=== PATIENT | male | born 1955 | race Caucasian/White ===

== ENCOUNTER 2022-05-25 21:39 | Emergency (ER) | payer OTHER ==
[~2022-05-25 21:39] MED LIST: Iopamidol-370 76% 500 ML 1 ML ONE
[2022-05-25 23:12] LABS: #Basophils 0.1 thou/uL (0.0-0.2); #Eosinphils 0.2 thou/uL (0.0-0.7); #Lymphocytes 1.9 thou/uL (1.20-3.40); #Monocytes 0.8 thou/uL (0.11-0.59); #Neutrophils 9.1 thou/uL (1.40-6.50); %Basophils 0.4 % (0.0-1.0); %Eosinophils 1.8 % (0.0-10.0); %Lymphocytes 15.8 % (21.0-51.0); %Monocytes 6.6 % (0.0-10.0); %Neutrophils 75.3 % (42.0-75.0); Hemoglobin 11.3 g/dL (14.0-18.0); Mean Corpuscular HGB CONC 34.4 g/dL (32.0-36.0); Mean Corpuscular Hemoglobin 32.7 pg (27.0-31.0); Mean Corpuscular Volume 95.3 fL (78.0-98.0); Mean Platelet Volume 7.3 fL (7.4-10.4); Platelet Count 406 thou/uL (130-400); RBC Distribution Width 14.1 % (11.5-14.5); Red Blood Cell (RBC) Count 3.45 mill/uL (4.70-6.10); White Blood Cell (WBC) Count 12.1 thou/uL (4.8-10.8)
[2022-05-25 23:34] LABS: Anion Gap 20 mmol/L (10-20); BUN (Urea Nitrogen) 26 mg/dL (8.4-25.7); Calc. Creatinine Clearance 0 mL/min (70-130); Carbon Dioxide 22 mmol/L (23-31); Chloride 101 mmol/L (98-107); Potassium 3.7 mmol/L (3.5-5.1); Sodium 139 mmol/L (136-145)
[2022-05-25 23:35] LABS: ALT (SGPT) 25 U/L (8-55); AST (SGOT) 21 U/L (5-34); Albumin 4.1 g/dL (3.4-4.8); Alkaline Phosphatase 103 U/L (40-110); Bilirubin, Total 0.6 mg/dL (0.2-1.2); CK (CPK) 76 U/L (30-200); Estimated GFR 63; Glucose 103 mg/dL (80-115); Lipase 25 U/L (8-78); Magnesium 1.6 mg/dL (1.6-2.6); Protein, Total 7.1 g/dL (5.8-8.1)
== END 2022-05-26 00:35 ==
LOC: ERS 21:39
DX: M79.18 Myalgia, other site (principal)
CPT/HCPCS: 36415; 70450; 74177; 80053; 82550; 83605; 83690; 83735; 84484; 85025; 93005; Q9967

== ENCOUNTER 2023-04-08 01:06 | Inpatient (IN) | payer MEDICARE, OTHER ==
[2023-04-08 01:38] LABS: Actual Bicarbonate (HCO3v) 28.8 mEq/L (22-28); Base Excess 0.7 mEq/L (-2.0 to +3.0); Calcium, Ionized (venous) 1.21 mmol/L (1.16-1.32); Chloride (VBG) 104 mmol/L (98-106); Hematocrit-VBG 39 % (42.0-52.0); Hemoglobin (Hb) 13.2 g/dL (12.6-17.4); Sodium 144.2 mmol/L (133-146); pH (venous) 7.282 (7.32-7.43)
[2023-04-08 01:41] LABS: #Basophils 0.1 thou/uL (0.0-0.2); #Eosinphils 0.6 thou/uL (0.0-0.7); #Monocytes 0.6 thou/uL (0.11-0.59); #Neutrophils 4.6 thou/uL (1.40-6.50); %Basophils 0.6 % (0.0-1.0); %Eosinophils 7.5 % (0.0-10.0); %Lymphocytes 24.4 % (21.0-51.0); %Monocytes 7.4 % (0.0-10.0); %Neutrophils 59.8 % (42.0-75.0); Hemoglobin 11.8 g/dL (14.0-18.0); Mean Corpuscular HGB CONC 31.8 g/dL (32.0-36.0); Mean Corpuscular Hemoglobin 30.3 pg (27.0-31.0); Mean Corpuscular Volume 95.1 fl (78.0-98.0); Mean Platelet Volume 10.2 fL (7.4-10.4); Platelet Count 258 10x3/uL (130-400); RBC Distribution Width 15.9 % (11.5-14.5); White Blood Cell (WBC) Count 7.7 10x3/uL (4.8-10.8)
[2023-04-08] MEDS ORDERED: methylPREDNISolone Sod Succ/PF 125 MG/2 ML VIAL ONE (01:41)
[2023-04-08] MEDS ORDERED: Azithromycin 500 MG VIAL ONE (01:42)
[2023-04-08] MEDS ORDERED: cefTRIAXone (ROCEPHIN) 1 GM VIAL ONE (01:42)
[2023-04-08] MEDS ORDERED: Albuterol 2.5 MG/0.5 ML NEB ONE (01:47)
[2023-04-08 02:04] LABS: ALT (SGPT) 70 U/L (8-55); AST (SGOT) 86 U/L (5-34); Alkaline Phosphatase 142 U/L (40-110); Anion Gap 13 mmol/L (10-20); BUN (Urea Nitrogen) 15 mg/dL (8.4-25.7); Bilirubin, Total 0.4 mg/dL (0.2-1.2); Calc. Creatinine Clearance 0 mL/min (70-130); Calcium 10.2 mg/dL (7.8-10.44); Carbon Dioxide 30 mmol/L (23-31); Chloride 105 mmol/L (98-107); Estimated GFR 54; Globulin 2.9 g/dL (2.4-3.5); Glucose 135 mg/dL (80-115); Potassium 4.2 mmol/L (3.5-5.1); Protein, Total 6.9 g/dL (5.8-8.1); Sodium 144 mmol/L (136-145)
[2023-04-08 02:26] LABS: CKMB 1.3 ng/mL (0-6.6)
[2023-04-08] MEDS ORDERED: Furosemide 40 MG/4 ML VIAL ONE (02:43)
[2023-04-08] MEDS ORDERED: Aspirin Chewable 81 MG TAB ONE (02:43)
[2023-04-08] MEDS ORDERED: Senokot S 8.6-50 MG TAB PO PRN (04:17)
[2023-04-08] MEDS ORDERED: Acetaminophen 325 MG TAB PO PRN (04:17)
[2023-04-08] MEDS ORDERED: Ondansetron ODT 4 MG TAB PO PRN (04:17)
[2023-04-08] MEDS: Furosemide 40 MG/4 ML VIAL SLOW IVP SCH ×2 (05:37→14:35)
[2023-04-08 06:37] VITALS: BMI 46.9
[2023-04-08] MEDS ORDERED: hydrALAZINE 25 MG TAB PO SCH (07:00)
[2023-04-08] MEDS: Ipratropium/Albuterol 3 ML NEB NEB SCH ×3 (08:03→18:28)
[2023-04-08] MEDS: Lisinopril 5 MG TAB PO SCH (08:26)
[2023-04-08] MEDS: Famotidine 20 MG TAB PO SCH ×2 (08:26→20:59)
[2023-04-08] MEDS: Carvedilol 6.25 MG TAB PO SCH ×2 (08:27→17:03)
[2023-04-08] MEDS: Doxycycline 100 MG CAP PO SCH ×3 (08:28→21:00)
[2023-04-08 08:34] LABS: Troponin I 0.046 ng/mL (< 0.028)
[2023-04-08] MEDS: methylPREDNISolone Sod Succ 40 MG VIAL IVP SCH ×2 (09:28→21:01)
[2023-04-08] MEDS: hydrALAZINE 25 MG TAB PO SCH ×2 (14:35→21:00)
[2023-04-08] MEDS ORDERED: Benzonatate 100 MG CAP PO PRN (15:18)
[2023-04-08] MEDS: Sucralfate 1 GM/10 ML UDCUP PO SCH ×2 (17:02→21:00)
[2023-04-08] MEDS: Docusate 100 MG CAP PO SCH ×2 (17:02→21:01)
[2023-04-08] MEDS: traMADol HCl 50 MG TAB PO SCH (17:02)
[2023-04-08] MEDS: Cilostazol 100 MG TAB PO SCH (17:03)
[2023-04-08] MEDS ORDERED: Albuterol 200 PUFF (6.7GM INHALER) INH PRN (18:00)
[2023-04-08] MEDS: Pregabalin 75 MG CAP PO SCH (20:59)
[2023-04-08] MEDS: Aspirin Chewable 81 MG TAB PO SCH (20:59)
[2023-04-08] MEDS ORDERED: Non-Formulary Item 1 EACH (Carvedilol [Coreg] 12.5 MG Tablet) PO SCH (21:00)
[2023-04-08] MEDS: Ferrous Sulfate 325 MG TAB PO SCH (21:00)
[2023-04-08] MEDS ORDERED: Venlafaxine 75 MG TAB PO PRN (21:00)
[2023-04-08] MEDS ORDERED: tiZANidine HCl 4 MG TAB PO PRN (22:00)
[2023-04-09] MEDS: traMADol HCl 50 MG TAB PO SCH ×4 (00:18→17:15)
[2023-04-09] MEDS: Ipratropium/Albuterol 3 ML NEB NEB SCH ×4 (00:24→18:24)
[2023-04-09] MEDS: cefTRIAXone\\ROCEPHIN 1 GM in Sodium Chloride 0.9% 100 ML IVPB SCH (02:33)
[2023-04-09 04:49] LABS: #Monocytes 0.4 thou/uL (0.11-0.59); #Neutrophils 10.1 thou/uL (1.40-6.50); %Basophils 0.2 % (0.0-1.0); %Lymphocytes 11.2 % (21.0-51.0); %Neutrophils 85.3 % (42.0-75.0); Hemoglobin 12.1 g/dL (14.0-18.0); Mean Corpuscular HGB CONC 31.8 g/dL (32.0-36.0); Mean Corpuscular Hemoglobin 30.2 pg (27.0-31.0); Mean Platelet Volume 10.6 fL (7.4-10.4); Platelet Count 289 10x3/uL (130-400); RBC Distribution Width 15.9 % (11.5-14.5); Red Blood Cell (RBC) Count 4.01 mill/uL (4.70-6.10); White Blood Cell (WBC) Count 11.9 10x3/uL (4.8-10.8)
[2023-04-09 05:16] LABS: Anion Gap 15 mmol/L (10-20); BUN (Urea Nitrogen) 22 mg/dL (8.4-25.7); Calc. Creatinine Clearance 99 mL/min (70-130); Calcium 9.9 mg/dL (7.8-10.44); Carbon Dioxide 30 mmol/L (23-31); Chloride 100 mmol/L (98-107); Estimated GFR 56; Glucose 144 mg/dL (80-115); Sodium 141 mmol/L (136-145)
[2023-04-09] MEDS: Furosemide 40 MG/4 ML VIAL SLOW IVP SCH ×2 (05:48→14:30)
[2023-04-09] MEDS: Lisinopril 5 MG TAB PO SCH (09:23)
[2023-04-09] MEDS: Famotidine 20 MG TAB PO SCH (09:23)
[2023-04-09] MEDS: Sucralfate 1 GM/10 ML UDCUP PO SCH ×4 (09:23→21:16)
[2023-04-09] MEDS: Pregabalin 75 MG CAP PO SCH ×2 (09:24→21:16)
[2023-04-09] MEDS: Docusate 100 MG CAP PO SCH ×4 (09:24→21:17)
[2023-04-09] MEDS: Carvedilol 6.25 MG TAB PO SCH ×2 (09:24→17:14)
[2023-04-09] MEDS: Chlorthalidone 25 MG TAB PO SCH (09:25)
[2023-04-09] MEDS: Aspirin Chewable 81 MG TAB PO SCH ×2 (09:25→21:17)
[2023-04-09] MEDS: Clopidogrel Bisulfate 75 MG TAB PO SCH (09:25)
[2023-04-09] MEDS: Doxycycline 100 MG CAP PO SCH ×2 (09:25→21:16)
[2023-04-09] MEDS: Atorvastatin Calcium 40 MG TAB PO SCH (09:25)
[2023-04-09] MEDS: Cilostazol 100 MG TAB PO SCH ×2 (09:25→17:14)
[2023-04-09] MEDS: Lisinopril 20 MG TAB PO SCH (09:26)
[2023-04-09] MEDS: methylPREDNISolone Sod Succ 40 MG VIAL IVP SCH ×2 (09:26→21:23)
[2023-04-09] MEDS: Ferrous Sulfate 325 MG TAB PO SCH ×2 (09:26→21:17)
[2023-04-09] MEDS: Magnesium Oxide 400 MG TAB PO SCH (09:26)
[2023-04-09] MEDS: hydrALAZINE 25 MG TAB PO SCH ×3 (09:26→21:17)
[2023-04-09] MEDS: Cyanocobalamin (Vitamin B-12) 1,000 MCG TAB PO SCH (09:27)
[2023-04-10] MEDS: Ipratropium/Albuterol 3 ML NEB NEB SCH ×4 (00:05→18:14)
[2023-04-10] MEDS: traMADol HCl 50 MG TAB PO SCH ×5 (00:46→23:32)
[2023-04-10] MEDS: cefTRIAXone\\ROCEPHIN 1 GM in Sodium Chloride 0.9% 100 ML IVPB SCH (02:26)
[2023-04-10] MEDS: Furosemide 40 MG/4 ML VIAL SLOW IVP SCH ×2 (06:30→13:00)
[2023-04-10] MEDS: Carvedilol 6.25 MG TAB PO SCH ×2 (08:23→16:51)
[2023-04-10] MEDS: Lisinopril 5 MG TAB PO SCH (08:23)
[2023-04-10] MEDS: Cyanocobalamin (Vitamin B-12) 1,000 MCG TAB PO SCH (08:24)
[2023-04-10] MEDS: Pregabalin 75 MG CAP PO SCH ×2 (08:24→20:25)
[2023-04-10] MEDS: Magnesium Oxide 400 MG TAB PO SCH (08:25)
[2023-04-10] MEDS: Lisinopril 20 MG TAB PO SCH (08:25)
[2023-04-10] MEDS: Ferrous Sulfate 325 MG TAB PO SCH ×2 (08:26→20:26)
[2023-04-10] MEDS: Clopidogrel Bisulfate 75 MG TAB PO SCH (08:26)
[2023-04-10] MEDS: Atorvastatin Calcium 40 MG TAB PO SCH (08:26)
[2023-04-10] MEDS: hydrALAZINE 25 MG TAB PO SCH ×3 (08:26→20:26)
[2023-04-10] MEDS: Chlorthalidone 25 MG TAB PO SCH (08:27)
[2023-04-10] MEDS: methylPREDNISolone Sod Succ 40 MG VIAL IVP SCH (08:27)
[2023-04-10] MEDS: Aspirin Chewable 81 MG TAB PO SCH ×2 (08:27→20:25)
[2023-04-10] MEDS: Cilostazol 100 MG TAB PO SCH ×2 (08:27→15:39)
[2023-04-10] MEDS: Docusate 100 MG CAP PO SCH ×4 (08:27→20:26)
[2023-04-10] MEDS: Doxycycline 100 MG CAP PO SCH ×2 (08:28→20:27)
[2023-04-10] MEDS: Sucralfate 1 GM/10 ML UDCUP PO SCH ×4 (09:20→20:27)
[2023-04-10] MEDS ORDERED: hydrALAZINE 25 MG TAB PO SCH (15:15)
[2023-04-11] MEDS: Ipratropium/Albuterol 3 ML NEB NEB SCH ×4 (00:36→18:27)
[2023-04-11] MEDS: cefTRIAXone\\ROCEPHIN 1 GM in Sodium Chloride 0.9% 100 ML IVPB SCH (02:40)
[2023-04-11 05:26] LABS: #Basophils 0.1 thou/uL (0.0-0.2); #Eosinphils 0.3 thou/uL (0.0-0.7); #Monocytes 1.2 thou/uL (0.11-0.59); #Neutrophils 7.2 thou/uL (1.40-6.50); %Basophils 0.5 % (0.0-1.0); %Eosinophils 2.7 % (0.0-10.0); %Lymphocytes 27.3 % (21.0-51.0); %Monocytes 9.7 % (0.0-10.0); %Neutrophils 59.5 % (42.0-75.0); Hemoglobin 12.3 g/dL (14.0-18.0); Mean Corpuscular HGB CONC 31.4 g/dL (32.0-36.0); Mean Corpuscular Hemoglobin 29.9 pg (27.0-31.0); Mean Corpuscular Volume 95.4 fl (78.0-98.0); Mean Platelet Volume 10.2 fL (7.4-10.4); Platelet Count 282 10x3/uL (130-400); RBC Distribution Width 15.9 % (11.5-14.5); Red Blood Cell (RBC) Count 4.11 mill/uL (4.70-6.10); White Blood Cell (WBC) Count 12.1 10x3/uL (4.8-10.8)
[2023-04-11 05:46] LABS: Anion Gap 15 mmol/L (10-20); BUN (Urea Nitrogen) 46 mg/dL (8.4-25.7); Calc. Creatinine Clearance 54 mL/min (70-130); Carbon Dioxide 31 mmol/L (23-31); Chloride 97 mmol/L (98-107); Estimated GFR 32; Glucose 105 mg/dL (80-115); Potassium 3.3 mmol/L (3.5-5.1); Sodium 140 mmol/L (136-145)
[2023-04-11] MEDS: Furosemide 40 MG/4 ML VIAL SLOW IVP SCH ×2 (05:50→14:58)
[2023-04-11] MEDS: traMADol HCl 50 MG TAB PO SCH ×3 (05:50→17:00)
[2023-04-11] MEDS ORDERED: predniSONE 20 MG TAB PO SCH (08:00)
[2023-04-11] MEDS: Aspirin Chewable 81 MG TAB PO SCH (08:06)
[2023-04-11] MEDS: Cilostazol 100 MG TAB PO SCH ×2 (08:06→16:57)
[2023-04-11] MEDS: Chlorthalidone 25 MG TAB PO SCH (08:07)
[2023-04-11] MEDS: hydrALAZINE 25 MG TAB PO SCH ×2 (08:07→14:55)
[2023-04-11] MEDS: Atorvastatin Calcium 40 MG TAB PO SCH (08:08)
[2023-04-11] MEDS: Sucralfate 1 GM/10 ML UDCUP PO SCH ×3 (08:08→16:58)
[2023-04-11] MEDS: Doxycycline 100 MG CAP PO SCH (08:08)
[2023-04-11] MEDS: Cyanocobalamin (Vitamin B-12) 1,000 MCG TAB PO SCH (08:08)
[2023-04-11] MEDS: Pregabalin 75 MG CAP PO SCH (08:09)
[2023-04-11] MEDS: Ferrous Sulfate 325 MG TAB PO SCH (08:09)
[2023-04-11] MEDS: Carvedilol 6.25 MG TAB PO SCH ×2 (08:10→16:57)
[2023-04-11] MEDS: Docusate 100 MG CAP PO SCH ×3 (08:10→16:58)
[2023-04-11] MEDS: Lisinopril 20 MG TAB PO SCH (08:10)
[2023-04-11] MEDS: Magnesium Oxide 400 MG TAB PO SCH (08:11)
[2023-04-11] MEDS: Clopidogrel Bisulfate 75 MG TAB PO SCH (08:11)
[2023-04-11] MEDS ORDERED: Potassium Chloride 20 MEQ TAB PO SCH (09:15)
[2023-04-11 16:12] VITALS: TEMP 97.4
[2023-04-11 16:59] VITALS: BP 142/65
== END 2023-04-11 19:10 | disposition home or self-care (01) | DRG 291 ==
LOC: ERS 01:06 → 2NO 05:18
PROVIDERS: ADMIT Student in an Organized Health Care Education/Training Program; ATTEND Hospitalist
DX: I13.0 Hypertensive heart and chronic kidney disease with heart failure and stage 1 through stage 4 chronic kidney disease, or unspecified chronic kidney disease (principal); I50.33 Acute on chronic diastolic (congestive) heart failure; J96.01 Acute respiratory failure with hypoxia; J44.1 Chronic obstructive pulmonary disease with (acute) exacerbation; Z68.41 Body mass index [BMI] 40.0-44.9, adult; K21.9 Gastro-esophageal reflux disease without esophagitis; E66.01 Morbid (severe) obesity due to excess calories; R77.8 Other specified abnormalities of plasma proteins; I25.10 Atherosclerotic heart disease of native coronary artery without angina pectoris; Z88.5 Allergy status to narcotic agent; Z88.8 Allergy status to other drugs, medicaments and biological substances; Z88.0 Allergy status to penicillin; Z87.891 Personal history of nicotine dependence
CPT/HCPCS: 36415; 36416; 71045; 80048; 80053; 82553; 82805; 83605; 83880; 84484; 85025; 87040; 93005; 93306; 94640; 96365; 96367; 96375; J0456; J0696; J1650; J1940; J2920; J2930; J3490; J7512; J7611; J7620; Q0162

== ENCOUNTER 2023-05-12 02:44 | Inpatient (IN) | payer MEDICARE ==
[2023-05-12] MEDS ORDERED: EPINEPHrine 1 MG/10 ML Abboject SYRINGE ONE (02:48)
[2023-05-12] MEDS ORDERED: Sodium Bicarb 50 MEQ/50 ML Abboject 8.4% SYRINGE ONE (02:48)
[2023-05-12] MEDS ORDERED: Fentanyl CADD 100 ML IV SCH (03:15)
[2023-05-12 03:24] LABS: Actual Bicarbonate (HCO3a) 24.8 mEq/L (22-28); Analyzer IN Cardio ER; Calcium, Ionized (arterial) 1.14 mmol/L (1.12-1.30); Carboxyhemoglobin (COHb) 0.3 gm% (0.0-3.0); Hematocrit-ABG 34 % (42.0-52.0); Hemoglobin (Hb) 11.7 g/dL (14.0-18.0); O2 Tension (PaO2), arterial 148.1 mmHg (> 80.0)
[2023-05-12] MEDS ORDERED: NOREPINEPHRINE 8 MG/250 ML-D5W 250 ML ONE (03:28)
[2023-05-12 03:29] LABS: CO2 Tension 100.8 mmHg (35.0-45.0); pH, Arterial 7.008 (7.35-7.45)
[2023-05-12 03:30] LABS: Puncture Site LRA
[2023-05-12 03:47] LABS: Hematocrit 34.5 % (42.0-52.0); Hemoglobin 9.9 g/dL (14.0-18.0); Mean Corpuscular HGB CONC 28.7 g/dL (32.0-36.0); Mean Corpuscular Volume 104.5 fl (78.0-98.0); Mean Platelet Volume 10.2 fL (7.4-10.4); Platelet Count 270 10x3/uL (130-400); RBC Distribution Width 15.9 % (11.5-14.5); White Blood Cell (WBC) Count 17.2 10x3/uL (4.8-10.8)
[2023-05-12 04:01] LABS: Delete Auto Diff?? YES; Manual Diff?? YES
[2023-05-12 04:15] LABS: ALT (SGPT) 58 U/L (8-55); AST (SGOT) 67 U/L (5-34); Albumin 3.3 g/dL (3.4-4.8); Alkaline Phosphatase 97 U/L (40-110); Anion Gap 27 mmol/L (10-20); BUN (Urea Nitrogen) 15 mg/dL (8.4-25.7); Bilirubin, Total 0.3 mg/dL (0.2-1.2); Calc. Creatinine Clearance 0 mL/min (70-130); Calcium 9.1 mg/dL (7.8-10.44); Carbon Dioxide 19 mmol/L (23-31); Chloride 100 mmol/L (98-107); Estimated GFR 42; Globulin 2.3 g/dL (2.4-3.5); Glucose 263 mg/dL (80-115); Protein, Total 5.6 g/dL (5.8-8.1); Sodium 142 mmol/L (136-145)
[2023-05-12 04:16] LABS: Troponin I Less than 0.010 ng/mL (< 0.028)
[2023-05-12] MEDS ORDERED: cefTRIAXone (ROCEPHIN) 2 GM VIAL ONE (04:28)
[2023-05-12 04:31] LABS: Band 4 % (5-11); Burr Cells SLIGHT = 2-5 cells HPF (0-1); CellaVision Operator ID lab.abc; Eosinophils 6 % (0-10); Lymphocytes 39 % (21-51); Macrocytosis SLIGHT = 6-15 cells HPF (0-5); Metamyelocyte 1 % (0-0); Monocytes 5 % (0-10); Neutrophil 44 % (42-75); Nucleated RBC (Manual Ct) 1 % (0); Platelet Adequacy Comment Platelets Normal; Poikilocytosis SLIGHT = 6-15 cells HPF (0-5); Polychromasia SLIGHT = 2-3 cells HPF (0-2); Reactive Lymphocytes 1 % (0-10); Smudge Cells 7.9 %; Total Cell Count 101
[2023-05-12] MEDS ORDERED: Azithromycin 500 MG VIAL ONE (04:52)
[2023-05-12 05:07] LABS: SARS-CoV-2 NAA Rapid Test Not Detected (NotDetected)
[2023-05-12 05:16] LABS: Actual Bicarbonate (HCO3a) 29.1 mEq/L (22-28); Analyzer IN Cardio ER; Base Excess (BEa) 2.4 mEq/L (-2.0 to +3.0); CO2 Tension 55.2 mmHg (35.0-45.0); Carboxyhemoglobin (COHb) 0.3 gm% (0.0-3.0); Hematocrit-ABG 35 % (42.0-52.0); Hemoglobin (Hb) 11.8 g/dL (14.0-18.0); O2 Tension (PaO2), arterial 388.8 mmHg (> 80.0); Potassium - ABG Lab 4.54 mmol/L (3.70-5.30)
[2023-05-12 05:21] LABS: Puncture Site LRA
[2023-05-12] MEDS ORDERED: Furosemide 40 MG/4 ML VIAL ONE (05:51)
[2023-05-12] MEDS ORDERED: Ondansetron ODT 4 MG TAB SL PRN (06:15)
[2023-05-12] MEDS ORDERED: Ondansetron PF 4 MG/2 ML Vial IVP PRN (06:15)
[2023-05-12] MEDS ORDERED: Ipratropium/Albuterol 3 ML NEB NEB PRN (06:25)
[2023-05-12] MEDS ORDERED: HumaLOG 300 UNITS/3 ML VIAL SC PRN (06:35)
[2023-05-12] MEDS ORDERED: Glucagon 1 MG/ML KIT IM PRN (06:35)
[2023-05-12] MEDS ORDERED: Dextrose 5% in Water 1,000 ML IV PRN (06:35)
[2023-05-12] MEDS ORDERED: Dextrose 50% Abboject 50 ML SYRINGE SLOW IVP PRN (06:35)
[2023-05-12] MEDS ORDERED: NOREPINEPHRINE 8 MG/250 ML-D5W 250 ML IVPB PRN (06:35)
[2023-05-12] MEDS ORDERED: Acetaminophen 650 MG Suppository PR PRN (06:35)
[2023-05-12] MEDS ORDERED: Ventilator Sedation Protocol 1 EACH FS SCH (06:45)
[2023-05-12] MEDS ORDERED: methylPREDNISolone Sod Succ/PF 125 MG/2 ML VIAL IVP SCH (06:46)
[2023-05-12 06:51] LABS: Bacteria/HPF None Seen HPF (None Seen); Bilirubin Negative (Negative); Blood, Urine 2+ (Negative); CAUTI Indications for Culture Alt mental st,lethar; Clarity Turbid (Clear); Glucose, Urine (Dipstick) 70 mg/dL (Negative); Ketone, Urine Negative (Negative); Leukocyte Negative Leu/uL (Negative); Nitrite Negative (Negative); Protein, Urine (Dipstick) 300 mg/dL (Neg-Trace); RBC/HPF 21-50 HPF (0-3); Specific Gravity, Urine 1.024 (1.002-1.036); Squamous Epithelial 0-3 HPF (0-3); Transitional Epithelial 0-3 HPF (None Seen); Urobilinogen Normal mg/dL (Less than 2); WBC/HPF 21-50 HPF (0-3); pH, Urine 7.5 (5.0-9.0)
[2023-05-12 06:52] LABS: Sperm/HPF 3+ HPF (None Seen)
[2023-05-12 06:53] LABS: Urine Culture Reflex Yes Yes
[2023-05-12] MEDS ORDERED: Fentanyl BOLUS 250 ML IVPB PRN (07:00)
[2023-05-12] MEDS ORDERED: Morphine 2 MG/ML VIAL SLOW IVP PRN (07:00)
[2023-05-12] MEDS ORDERED: Propofol BOLUS 1,000 MG/100 ML VIAL IV PRN (07:00)
[2023-05-12] MEDS ORDERED: DISCONTINUE PREVIOUS NARCOTIC PAIN MEDICATIONS AND BENZODIAZEPINES FS SCH (07:00)
[2023-05-12] MEDS: Propofol 1,000 MG/100 ML VIAL IV PRN ×5 (07:11→23:07)
[2023-05-12 07:12] LABS: Lactic Acid 1.9 mmol/L (0.5-2.2)
[2023-05-12] MEDS: Lorazepam 2 MG/ML VIAL SLOW IVP PRN (07:20)
[2023-05-12] MEDS ORDERED: Vecuronium 10 MG VIAL ONE (07:24)
[2023-05-12] MEDS ORDERED: Pantoprazole 40 MG VIAL IVP SCH (07:30)
[2023-05-12] MEDS ORDERED: Vecuronium 10 MG VIAL IVP PRN (07:31)
[2023-05-12] MEDS: Ipratropium/Albuterol 3 ML NEB NEB SCH ×5 (07:36→22:26)
[2023-05-12] MEDS ORDERED: Magnesium 2 GM/50 ML(in water) 2 GM in Premix Bag 1 BAG IVPB SCH (07:45)
[2023-05-12 08:39] LABS: Base Excess (BEa) 4.2 mEq/L (-2.0 to +3.0); CO2 Tension 58.2 mmHg (35.0-45.0); Calcium, Ionized (arterial) 1.13 mmol/L (1.12-1.30); Carboxyhemoglobin (COHb) 0.3 gm% (0.0-3.0); Hematocrit-ABG 33 % (42.0-52.0); Hemoglobin (Hb) 11.1 g/dL (14.0-18.0); Potassium - ABG Lab 3.94 mmol/L (3.70-5.30); pH, Arterial 7.345 (7.35-7.45)
[2023-05-12 08:42] LABS: O2 Tension (PaO2), arterial 59.3 mmHg (> 80.0)
[2023-05-12 08:43] LABS: Puncture Site LRA
[2023-05-12] MEDS: Pantoprazole 40 MG VIAL IVP SCH (08:44)
[2023-05-12] MEDS ORDERED: Iopamidol-370 76% 500 ML MDV (1 ML CHARGE) ONE (09:25)
[2023-05-12] MEDS: methylPREDNISolone Sod Succ 40 MG VIAL IVP SCH ×3 (12:42→23:08)
[2023-05-12] MEDS ORDERED: Fentanyl CADD 100 ML ONE (16:06)
[2023-05-12] MEDS: HumaLOG 300 UNITS/3 ML VIAL SC PRN (16:09)
[2023-05-12] MEDS: Fentanyl CADD 100 ML IV SCH (16:18)
[2023-05-13] MEDS: Propofol 1,000 MG/100 ML VIAL IV PRN ×2 (02:05→04:40)
[2023-05-13] MEDS: Ipratropium/Albuterol 3 ML NEB NEB SCH ×6 (02:15→22:23)
[2023-05-13 04:10] LABS: #Monocytes 0.6 thou/uL (0.11-0.59); #Neutrophils 20.2 thou/uL (1.40-6.50); %Basophils 0.1 % (0.0-1.0); %Lymphocytes 4.8 % (21.0-51.0); %Monocytes 2.8 % (0.0-10.0); %Neutrophils 91.6 % (42.0-75.0); Hematocrit 31.1 % (42.0-52.0); Hemoglobin 9.8 g/dL (14.0-18.0); Mean Corpuscular HGB CONC 31.5 g/dL (32.0-36.0); Mean Corpuscular Hemoglobin 29.7 pg (27.0-31.0); Mean Corpuscular Volume 94.2 fl (78.0-98.0); Mean Platelet Volume 9.9 fL (7.4-10.4); Platelet Count 232 10x3/uL (130-400); RBC Distribution Width 16.1 % (11.5-14.5); White Blood Cell (WBC) Count 22.1 10x3/uL (4.8-10.8)
[2023-05-13 04:31] LABS: ALT (SGPT) 84 U/L (8-55); AST (SGOT) 78 U/L (5-34); Albumin 3.1 g/dL (3.4-4.8); Alkaline Phosphatase 98 U/L (40-110); Anion Gap 14 mmol/L (10-20); BUN (Urea Nitrogen) 32 mg/dL (8.4-25.7); Bilirubin, Total 0.4 mg/dL (0.2-1.2); Calc. Creatinine Clearance 56 mL/min (70-130); Calcium 8.7 mg/dL (7.8-10.44); Carbon Dioxide 30 mmol/L (23-31); Chloride 99 mmol/L (98-107); Estimated GFR 31; Globulin 2.5 g/dL (2.4-3.5); Glucose 162 mg/dL (80-115); Magnesium 2.1 mg/dL (1.6-2.6); Potassium 3.8 mmol/L (3.5-5.1); Protein, Total 5.6 g/dL (5.8-8.1); Sodium 139 mmol/L (136-145)
[2023-05-13] MEDS ORDERED: Azithromycin 500 MG in Sodium Chloride 0.9% 250 ML 250 ML IVPB SCH (05:00)
[2023-05-13] MEDS: methylPREDNISolone Sod Succ 40 MG VIAL IVP SCH ×4 (05:42→23:52)
[2023-05-13] MEDS: cefTRIAXone\\ROCEPHIN 1 GM in Sodium Chloride 0.9% 100 ML IVPB SCH (05:42)
[2023-05-13] MEDS: Fentanyl CADD 100 ML IV SCH (06:13)
[2023-05-13] MEDS: Pantoprazole 40 MG VIAL IVP SCH (09:18)
[2023-05-13] MEDS: HumaLOG 300 UNITS/3 ML VIAL SC PRN ×3 (09:18→16:26)
[2023-05-13] MEDS: niCARdipine 50 MG in Sodium Chloride 0.9% 250 ML 230 ML IVPB SCH ×2 (11:25→19:28)
[2023-05-14] MEDS: Ipratropium/Albuterol 3 ML NEB NEB SCH ×6 (02:30→22:28)
[2023-05-14] MEDS: niCARdipine 50 MG in Sodium Chloride 0.9% 250 ML 230 ML IVPB SCH (03:00)
[2023-05-14 04:55] LABS: #Monocytes 0.6 thou/uL (0.11-0.59); #Neutrophils 18.1 thou/uL (1.40-6.50); %Basophils 0.1 % (0.0-1.0); %Lymphocytes 4.1 % (21.0-51.0); %Monocytes 2.9 % (0.0-10.0); %Neutrophils 92.3 % (42.0-75.0); Hematocrit 32.1 % (42.0-52.0); Hemoglobin 10.1 g/dL (14.0-18.0); Mean Corpuscular HGB CONC 31.5 g/dL (32.0-36.0); Mean Corpuscular Hemoglobin 29.5 pg (27.0-31.0); Mean Corpuscular Volume 93.9 fl (78.0-98.0); Mean Platelet Volume 10.8 fL (7.4-10.4); Platelet Count 232 10x3/uL (130-400); RBC Distribution Width 15.9 % (11.5-14.5); Red Blood Cell (RBC) Count 3.42 mill/uL (4.70-6.10); White Blood Cell (WBC) Count 19.6 10x3/uL (4.8-10.8)
[2023-05-14] MEDS: cefTRIAXone\\ROCEPHIN 1 GM in Sodium Chloride 0.9% 100 ML IVPB SCH (04:58)
[2023-05-14] MEDS: methylPREDNISolone Sod Succ 40 MG VIAL IVP SCH ×3 (05:01→17:24)
[2023-05-14 05:32] LABS: ALT (SGPT) 62 U/L (8-55); AST (SGOT) 72 U/L (5-34); Albumin 3.2 g/dL (3.4-4.8); Alkaline Phosphatase 100 U/L (40-110); Anion Gap 13 mmol/L (10-20); BUN (Urea Nitrogen) 42 mg/dL (8.4-25.7); Bilirubin, Total 0.3 mg/dL (0.2-1.2); Calc. Creatinine Clearance 62 mL/min (70-130); Calcium 8.7 mg/dL (7.8-10.44); Carbon Dioxide 30 mmol/L (23-31); Chloride 99 mmol/L (98-107); Estimated GFR 33; Globulin 2.7 g/dL (2.4-3.5); Glucose 165 mg/dL (80-115); Magnesium 2.7 mg/dL (1.6-2.6); Potassium 4.1 mmol/L (3.5-5.1); Protein, Total 5.9 g/dL (5.8-8.1); Sodium 138 mmol/L (136-145)
[2023-05-14] MEDS: HumaLOG 300 UNITS/3 ML VIAL SC PRN ×3 (08:08→16:27)
[2023-05-14] MEDS: Pantoprazole 40 MG VIAL IVP SCH (08:54)
[2023-05-14] MEDS: Acetaminophen 325 MG TAB PO PRN ×2 (08:54→16:37)
[2023-05-14] MEDS: niCARdipine 50 MG, Admixture Fee 1 EACH in Sodium Chloride 0.9% 250 ML 230 ML IVPB SCH (19:31)
[2023-05-15] MEDS: niCARdipine 50 MG, Admixture Fee 1 EACH in Sodium Chloride 0.9% 250 ML 230 ML IVPB SCH ×6 (00:46→20:39)
[2023-05-15] MEDS: methylPREDNISolone Sod Succ 40 MG VIAL IVP SCH ×4 (01:07→17:17)
[2023-05-15] MEDS: Ipratropium/Albuterol 3 ML NEB NEB SCH ×6 (02:02→22:28)
[2023-05-15 04:03] LABS: #Neutrophils 21.9 thou/uL (1.40-6.50); %Basophils 0.1 % (0.0-1.0); %Lymphocytes 4.5 % (21.0-51.0); %Monocytes 4.2 % (0.0-10.0); %Neutrophils 90.1 % (42.0-75.0); Hematocrit 33.7 % (42.0-52.0); Hemoglobin 10.7 g/dL (14.0-18.0); Mean Corpuscular HGB CONC 31.8 g/dL (32.0-36.0); Mean Corpuscular Hemoglobin 29.6 pg (27.0-31.0); Mean Corpuscular Volume 93.1 fl (78.0-98.0); Mean Platelet Volume 10.4 fL (7.4-10.4); Platelet Count 297 10x3/uL (130-400); RBC Distribution Width 16.2 % (11.5-14.5); Red Blood Cell (RBC) Count 3.62 mill/uL (4.70-6.10); White Blood Cell (WBC) Count 24.3 10x3/uL (4.8-10.8)
[2023-05-15] MEDS: Acetaminophen 325 MG TAB PO PRN ×2 (04:13→20:17)
[2023-05-15] MEDS: cefTRIAXone\\ROCEPHIN 1 GM in Sodium Chloride 0.9% 100 ML IVPB SCH (04:14)
[2023-05-15 04:24] LABS: Anion Gap 13 mmol/L (10-20); BUN (Urea Nitrogen) 46 mg/dL (8.4-25.7); Calc. Creatinine Clearance 75 mL/min (70-130); Calcium 8.9 mg/dL (7.8-10.44); Carbon Dioxide 30 mmol/L (23-31); Chloride 104 mmol/L (98-107); Estimated GFR 43; Glucose 166 mg/dL (80-115); Potassium 3.5 mmol/L (3.5-5.1); Sodium 143 mmol/L (136-145)
[2023-05-15 07:16] LABS: ALV-art Gradient 170.825 mmHg (0-20); Actual Bicarbonate (HCO3a) 29.3 mEq/L (22-28); Base Excess (BEa) 5.3 mEq/L (-2.0 to +3.0); CO2 Tension 40.7 mmHg (35.0-45.0); Calcium, Ionized (arterial) 1.13 mmol/L (1.12-1.30); Carboxyhemoglobin (COHb) 0.3 gm% (0.0-3.0); Hematocrit-ABG 39 % (42.0-52.0); Hemoglobin (Hb) 13.1 g/dL (14.0-18.0); O2 Tension (PaO2), arterial 63.5 mmHg (> 80.0); Potassium - ABG Lab 3.54 mmol/L (3.70-5.30); Puncture Site LRA; pH, Arterial 7.475 (7.35-7.45)
[2023-05-15] MEDS: HumaLOG 300 UNITS/3 ML VIAL SC PRN ×4 (08:36→20:03)
[2023-05-15] MEDS: Pantoprazole 40 MG VIAL IVP SCH (08:52)
[2023-05-15] MEDS ORDERED: Venlafaxine 75 MG TAB PO PRN (10:53)
[2023-05-15] MEDS ORDERED: Lisinopril 20 MG TAB PO SCH (11:00)
[2023-05-15] MEDS ORDERED: Venlafaxine 75 MG TAB PO SCH (11:30)
[2023-05-15] MEDS ORDERED: Pregabalin 75 MG CAP PO SCH ×2 (11:30→11:45)
[2023-05-15] MEDS: Labetalol HCl 100 MG/20 ML VIAL SLOW IVP PRN ×3 (14:24→23:13)
[2023-05-15] MEDS: Carvedilol 6.25 MG TAB PO SCH (20:03)
[2023-05-15] MEDS: Pregabalin 75 MG CAP PO SCH (20:03)
[2023-05-15] MEDS: Lorazepam 2 MG/ML VIAL SLOW IVP PRN (20:39)
[2023-05-16] MEDS: methylPREDNISolone Sod Succ 40 MG VIAL IVP SCH ×5 (00:26→23:06)
[2023-05-16] MEDS: niCARdipine 50 MG, Admixture Fee 1 EACH in Sodium Chloride 0.9% 250 ML 230 ML IVPB SCH ×6 (00:28→21:34)
[2023-05-16] MEDS: HumaLOG 300 UNITS/3 ML VIAL SC PRN ×4 (00:39→21:07)
[2023-05-16] MEDS: Ipratropium/Albuterol 3 ML NEB NEB SCH ×6 (02:31→22:33)
[2023-05-16] MEDS: Labetalol HCl 100 MG/20 ML VIAL SLOW IVP PRN ×2 (03:34→09:13)
[2023-05-16 03:58] LABS: #Monocytes 0.6 thou/uL (0.11-0.59); #Neutrophils 14.5 thou/uL (1.40-6.50); %Basophils 0.1 % (0.0-1.0); %Lymphocytes 7.3 % (21.0-51.0); %Monocytes 3.9 % (0.0-10.0); %Neutrophils 87.7 % (42.0-75.0); Hematocrit 34.9 % (42.0-52.0); Hemoglobin 11.1 g/dL (14.0-18.0); Mean Corpuscular HGB CONC 31.8 g/dL (32.0-36.0); Mean Corpuscular Hemoglobin 29.8 pg (27.0-31.0); Mean Corpuscular Volume 93.6 fl (78.0-98.0); Mean Platelet Volume 10.3 fL (7.4-10.4); Platelet Count 307 10x3/uL (130-400); RBC Distribution Width 16.1 % (11.5-14.5); Red Blood Cell (RBC) Count 3.73 mill/uL (4.70-6.10); White Blood Cell (WBC) Count 16.5 10x3/uL (4.8-10.8)
[2023-05-16 04:19] LABS: Anion Gap 13 mmol/L (10-20); BUN (Urea Nitrogen) 57 mg/dL (8.4-25.7); Calc. Creatinine Clearance 76 mL/min (70-130); Calcium 9.6 mg/dL (7.8-10.44); Carbon Dioxide 30 mmol/L (23-31); Chloride 107 mmol/L (98-107); Estimated GFR 43; Glucose 188 mg/dL (80-115); Potassium 3.9 mmol/L (3.5-5.1); Sodium 146 mmol/L (136-145)
[2023-05-16] MEDS: cefTRIAXone\\ROCEPHIN 1 GM in Sodium Chloride 0.9% 100 ML IVPB SCH (05:35)
[2023-05-16] MEDS: hydrALAZINE 20 MG/ML VIAL SLOW IVP PRN ×3 (06:18→18:06)
[2023-05-16] MEDS: Pantoprazole 40 MG VIAL IVP SCH (08:30)
[2023-05-16] MEDS: Carvedilol 6.25 MG TAB PO SCH ×2 (08:30→20:56)
[2023-05-16] MEDS: Lisinopril 20 MG TAB PO SCH (08:30)
[2023-05-16] MEDS: Pregabalin 75 MG CAP PO SCH ×2 (08:31→20:51)
[2023-05-16] MEDS ORDERED: Furosemide 20 MG TAB PO SCH (09:00)
[2023-05-16] MEDS: levETIRAcetam 500 MG/5 ML VIAL SLOW IVP SCH ×2 (11:08→23:06)
[2023-05-16] MEDS: Acetaminophen 325 MG TAB PO PRN (20:50)
[2023-05-16] MEDS ORDERED: Metoprolol Tartrate 5 MG/5 ML VIAL IVP SCH (23:00)
[2023-05-16] MEDS ORDERED: Acetaminophen 325 MG TAB PER TUBE SCH (23:00)
[2023-05-17] MEDS: niCARdipine 50 MG, Admixture Fee 1 EACH in Sodium Chloride 0.9% 250 ML 230 ML IVPB SCH ×4 (01:06→14:36)
[2023-05-17] MEDS: HumaLOG 300 UNITS/3 ML VIAL SC PRN ×5 (01:07→18:29)
[2023-05-17] MEDS: Ipratropium/Albuterol 3 ML NEB NEB SCH ×6 (02:31→23:41)
[2023-05-17] MEDS ORDERED: Metoprolol Tartrate 5 MG/5 ML VIAL IVP SCH (04:00)
[2023-05-17 04:19] LABS: #Monocytes 1.2 thou/uL (0.11-0.59); #Neutrophils 15.9 thou/uL (1.40-6.50); %Basophils 0.2 % (0.0-1.0); %Lymphocytes 7.2 % (21.0-51.0); %Monocytes 6.3 % (0.0-10.0); %Neutrophils 84.8 % (42.0-75.0); Hematocrit 37.9 % (42.0-52.0); Hemoglobin 12.1 g/dL (14.0-18.0); Mean Corpuscular HGB CONC 31.9 g/dL (32.0-36.0); Mean Corpuscular Volume 93.8 fl (78.0-98.0); Mean Platelet Volume 10.7 fL (7.4-10.4); Platelet Count 331 10x3/uL (130-400); RBC Distribution Width 16.6 % (11.5-14.5); Red Blood Cell (RBC) Count 4.04 mill/uL (4.70-6.10); White Blood Cell (WBC) Count 18.8 10x3/uL (4.8-10.8)
[2023-05-17 04:42] LABS: Anion Gap 17 mmol/L (10-20); BUN (Urea Nitrogen) 92 mg/dL (8.4-25.7); Calc. Creatinine Clearance 50 mL/min (70-130); Calcium 9.5 mg/dL (7.8-10.44); Carbon Dioxide 25 mmol/L (23-31); Chloride 111 mmol/L (98-107); Estimated GFR 26; Glucose 172 mg/dL (80-115); Sodium 149 mmol/L (136-145)
[2023-05-17] MEDS: Acetaminophen 325 MG TAB PO PRN (05:21)
[2023-05-17] MEDS: methylPREDNISolone Sod Succ 40 MG VIAL IVP SCH ×2 (05:21→12:34)
[2023-05-17] MEDS: cefTRIAXone\\ROCEPHIN 1 GM in Sodium Chloride 0.9% 100 ML IVPB SCH (05:21)
[2023-05-17] MEDS ORDERED: Pantoprazole 40 MG GRANULES PACKET PER TUBE SCH (09:00)
[2023-05-17] MEDS: Lisinopril 20 MG TAB PO SCH (09:59)
[2023-05-17] MEDS: Carvedilol 6.25 MG TAB PO SCH (09:59)
[2023-05-17] MEDS: Pregabalin 75 MG CAP PO SCH ×2 (10:05→21:28)
[2023-05-17] MEDS: levETIRAcetam 500 MG/5 ML VIAL SLOW IVP SCH (10:41)
[2023-05-17 14:46] LABS: #Neutrophils 18.6 thou/uL (1.40-6.50); %Basophils 0.1 % (0.0-1.0); %Lymphocytes 5.9 % (21.0-51.0); %Monocytes 4.7 % (0.0-10.0); %Neutrophils 88.3 % (42.0-75.0); Hematocrit 40.4 % (42.0-52.0); Hemoglobin 12.5 g/dL (14.0-18.0); Mean Corpuscular HGB CONC 30.9 g/dL (32.0-36.0); Mean Corpuscular Hemoglobin 29.3 pg (27.0-31.0); Mean Corpuscular Volume 94.6 fl (78.0-98.0); Mean Platelet Volume 10.6 fL (7.4-10.4); Platelet Count 327 10x3/uL (130-400); RBC Distribution Width 16.6 % (11.5-14.5); Red Blood Cell (RBC) Count 4.27 mill/uL (4.70-6.10)
[2023-05-17 14:53] VITALS: BMI 44.1
[2023-05-17 15:00] LABS: INR-International Normal Ratio 1.1; PTT 28.6 sec (22.9-36.1); Prothrombin Time 15.1 sec (12.0-14.7)
[2023-05-17 15:02] LABS: ALT (SGPT) 37 U/L (8-55); AST (SGOT) 57 U/L (5-34); Albumin 3.1 g/dL (3.4-4.8); Alkaline Phosphatase 75 U/L (40-110); Anion Gap 16 mmol/L (10-20); BUN (Urea Nitrogen) 91 mg/dL (8.4-25.7); Bilirubin, Total 0.3 mg/dL (0.2-1.2); Calc. Creatinine Clearance 60 mL/min (70-130); Calcium 9.5 mg/dL (7.8-10.44); Carbon Dioxide 25 mmol/L (23-31); Chloride 114 mmol/L (98-107); Estimated GFR 33; Globulin 2.8 g/dL (2.4-3.5); Glucose 190 mg/dL (80-115); Magnesium 2.5 mg/dL (1.6-2.6); Phosphorus 4.8 mg/dL (2.3-4.7); Potassium 3.7 mmol/L (3.5-5.1); Protein, Total 5.9 g/dL (5.8-8.1)
[2023-05-17 15:05] LABS: Bilirubin Negative (Negative); Blood, Urine 2+ (Negative); Clarity Turbid (Clear); Glucose, Urine (Dipstick) Normal (Negative); Ketone, Urine Negative (Negative); Leukocyte 25 Leu/uL (Negative); Nitrite Negative (Negative); Protein, Urine (Dipstick) 100 mg/dL (Neg-Trace); Specific Gravity, Urine 1.018 (1.002-1.036); Squamous Epithelial 0-3 HPF (0-3); Urobilinogen Normal mg/dL (Less than 2); pH, Urine 5.5 (5.0-9.0)
[2023-05-17 15:08] LABS: Sodium 151 mmol/L (136-145)
[2023-05-17 15:10] LABS: Bacteria/HPF 1+ HPF (None Seen)
[2023-05-17] MEDS ORDERED: Amlodipine 10 MG TAB PO SCH (16:00)
[2023-05-17] MEDS ORDERED: Carvedilol 25 MG TAB PO SCH (16:00)
[2023-05-17] MEDS: Carvedilol 25 MG TAB PO SCH (18:20)
[2023-05-17 21:14] LABS: #Monocytes 1.1 thou/uL (0.11-0.59); #Neutrophils 20.3 thou/uL (1.40-6.50); %Basophils 0.1 % (0.0-1.0); %Lymphocytes 4.5 % (21.0-51.0); %Neutrophils 89.7 % (42.0-75.0); Hematocrit 38.1 % (42.0-52.0); Mean Corpuscular HGB CONC 31.5 g/dL (32.0-36.0); Mean Corpuscular Hemoglobin 29.7 pg (27.0-31.0); Mean Corpuscular Volume 94.3 fl (78.0-98.0); Mean Platelet Volume 10.7 fL (7.4-10.4); Platelet Count 323 10x3/uL (130-400); RBC Distribution Width 16.5 % (11.5-14.5); Red Blood Cell (RBC) Count 4.04 mill/uL (4.70-6.10); White Blood Cell (WBC) Count 22.7 10x3/uL (4.8-10.8)
[2023-05-17] MEDS: Lansoprazole 15 MG/5 ML (BATCHED)UDCUP PER TUBE SCH (21:30)
[2023-05-17 21:41] LABS: INR-International Normal Ratio 1.1; Prothrombin Time 14.8 sec (12.0-14.7)
[2023-05-17 21:42] LABS: ALT (SGPT) 31 U/L (8-55); AST (SGOT) 46 U/L (5-34); Albumin 2.9 g/dL (3.4-4.8); Alkaline Phosphatase 71 U/L (40-110); Anion Gap 14 mmol/L (10-20); BUN (Urea Nitrogen) 94 mg/dL (8.4-25.7); Bilirubin, Total 0.3 mg/dL (0.2-1.2); Calc. Creatinine Clearance 60 mL/min (70-130); Calcium 9.4 mg/dL (7.8-10.44); Carbon Dioxide 27 mmol/L (23-31); Chloride 115 mmol/L (98-107); Estimated GFR 33; Globulin 2.6 g/dL (2.4-3.5); Glucose 191 mg/dL (80-115); Magnesium 2.6 mg/dL (1.6-2.6); Potassium 3.6 mmol/L (3.5-5.1); Protein, Total 5.5 g/dL (5.8-8.1)
[2023-05-17 21:51] LABS: Sodium 152 mmol/L (136-145)
[2023-05-18] MEDS: levETIRAcetam 500 MG/5 ML VIAL SLOW IVP SCH ×2 (00:48→11:37)
[2023-05-18] MEDS: niCARdipine 50 MG, Admixture Fee 1 EACH in Sodium Chloride 0.9% 250 ML 230 ML IVPB SCH ×2 (00:49→12:55)
[2023-05-18] MEDS: Ipratropium/Albuterol 3 ML NEB NEB SCH ×6 (02:32→21:47)
[2023-05-18 04:21] LABS: #Basophils 0.1 thou/uL (0.0-0.2); #Monocytes 2.1 thou/uL (0.11-0.59); #Neutrophils 29.8 thou/uL (1.40-6.50); %Basophils 0.2 % (0.0-1.0); %Monocytes 6.2 % (0.0-10.0); %Neutrophils 89.8 % (42.0-75.0); Hematocrit 39.5 % (42.0-52.0); Hemoglobin 12.1 g/dL (14.0-18.0); Mean Corpuscular HGB CONC 30.6 g/dL (32.0-36.0); Mean Corpuscular Hemoglobin 29.5 pg (27.0-31.0); Mean Corpuscular Volume 96.3 fl (78.0-98.0); Mean Platelet Volume 10.9 fL (7.4-10.4); Platelet Count 341 10x3/uL (130-400); RBC Distribution Width 16.5 % (11.5-14.5)
[2023-05-18 04:27] LABS: White Blood Cell (WBC) Count 33.1 10x3/uL (4.8-10.8)
[2023-05-18 04:28] LABS: Manual Diff?? YES
[2023-05-18 04:48] LABS: Anion Gap 17 mmol/L (10-20); BUN (Urea Nitrogen) 103 mg/dL (8.4-25.7); Calc. Creatinine Clearance 57 mL/min (70-130); Calcium 9.7 mg/dL (7.8-10.44); Carbon Dioxide 26 mmol/L (23-31); Chloride 115 mmol/L (98-107); Estimated GFR 31; Glucose 180 mg/dL (80-115); Potassium 3.8 mmol/L (3.5-5.1)
[2023-05-18 04:54] LABS: Sodium 154 mmol/L (136-145)
[2023-05-18 05:29] LABS: Anisocytosis SLIGHT = 6-15 cells HPF (0-5); Band 3 % (5-11); Burr Cells SLIGHT = 2-5 cells HPF (0-1); CellaVision Operator ID lab.sh2; Hypochromia SLIGHT = 6-15 cells HPF (0-5); Macrocytosis SLIGHT = 6-15 cells HPF (0-5); Monocytes 4 % (0-10); Neutrophil 93 % (42-75); Platelet Adequacy Comment Platelets Normal; Polychromasia SLIGHT = 2-3 cells HPF (0-2); Smudge Cells 8.1 %; Tear Drops SLIGHT = 2-5 cells HPF (0-1); Total Cell Count 99
[2023-05-18 07:38] LABS: INR-International Normal Ratio 1.2; PTT 28.7 sec (22.9-36.1); Prothrombin Time 15.2 sec (12.0-14.7)
[2023-05-18 07:43] LABS: ALT (SGPT) 32 U/L (8-55); AST (SGOT) 47 U/L (5-34); Bilirubin, Direct 0.1 mg/dL (0.1-0.3); Bilirubin, Total 0.3 mg/dL (0.2-1.2)
[2023-05-18 07:47] LABS: Bilirubin Negative (Negative); Blood, Urine Large (Negative); Glucose, Urine (Dipstick) Negative (Negative); Ketone, Urine Negative (Negative); Leukocyte Moderate (Negative); Nitrite Negative (Negative); Protein, Urine (Dipstick) 100 mg/dL (Neg-Trace); Specific Gravity, Urine 1.025 (1.005-1.030); Urobilinogen 0.2 mg/dL (Less than 2); pH, Urine 5.5 (5.0-9.0)
[2023-05-18 07:52] LABS: Clarity Hazy (Clear)
[2023-05-18 07:55] LABS: Bacteria/HPF 2+ HPF (None Seen); Squamous Epithelial 0-3 HPF (0-3)
[2023-05-18] MEDS: Lisinopril 20 MG TAB PO SCH (09:05)
[2023-05-18] MEDS: Pregabalin 75 MG CAP PO SCH ×2 (09:06→20:26)
[2023-05-18] MEDS: Amlodipine 10 MG TAB PO SCH (09:06)
[2023-05-18] MEDS: Carvedilol 25 MG TAB PO SCH ×2 (09:07→17:54)
[2023-05-18] MEDS: Sodium Chloride 0.45% 1,000 ML IV SCH ×3 (09:08→21:59)
[2023-05-18 10:50] LABS: Hematocrit 39.3 % (42.0-52.0); Hemoglobin 12.1 g/dL (14.0-18.0); Mean Corpuscular HGB CONC 30.8 g/dL (32.0-36.0); Mean Corpuscular Hemoglobin 29.7 pg (27.0-31.0); Mean Corpuscular Volume 96.6 fl (78.0-98.0); Mean Platelet Volume 10.6 fL (7.4-10.4); Platelet Count 347 10x3/uL (130-400); RBC Distribution Width 16.5 % (11.5-14.5); Red Blood Cell (RBC) Count 4.07 mill/uL (4.70-6.10); White Blood Cell (WBC) Count 37.2 10x3/uL (4.8-10.8)
[2023-05-18 10:57] LABS: Delete Auto Diff?? YES; Manual Diff?? YES
[2023-05-18 11:04] LABS: INR-International Normal Ratio 1.1; PTT 28.2 sec (22.9-36.1); Prothrombin Time 14.9 sec (12.0-14.7)
[2023-05-18 11:18] LABS: ALT (SGPT) 32 U/L (8-55); AST (SGOT) 43 U/L (5-34); Albumin 2.9 g/dL (3.4-4.8); Alkaline Phosphatase 79 U/L (40-110); Anion Gap 16 mmol/L (10-20); BUN (Urea Nitrogen) 108 mg/dL (8.4-25.7); Band 2 % (5-11); Bilirubin, Total 0.3 mg/dL (0.2-1.2); Burr Cells SLIGHT = 2-5 cells HPF (0-1); Calc. Creatinine Clearance 53 mL/min (70-130); Calcium 9.7 mg/dL (7.8-10.44); Carbon Dioxide 25 mmol/L (23-31); CellaVision Operator ID LAB.GE; Chloride 115 mmol/L (98-107); Estimated GFR 29; Globulin 2.6 g/dL (2.4-3.5); Glucose 188 mg/dL (80-115); Lymphocytes 1 % (21-51); Magnesium 2.9 mg/dL (1.6-2.6); Monocytes 3 % (0-10); Neutrophil 94 % (42-75); Platelet Adequacy Comment Platelets Normal; Polychromasia SLIGHT = 2-3 cells HPF (0-2); Potassium 3.7 mmol/L (3.5-5.1); Protein, Total 5.5 g/dL (5.8-8.1); Total Cell Count 101
[2023-05-18 11:24] LABS: Sodium 152 mmol/L (136-145)
[2023-05-18 11:52] LABS: Actual Bicarbonate (HCO3a) 25.3 mEq/L (22-28); Base Excess (BEa) 0.1 mEq/L (-2.0 to +3.0); CO2 Tension 43.4 mmHg (35.0-45.0); Calcium, Ionized (arterial) 1.33 mmol/L (1.12-1.30); Carboxyhemoglobin (COHb) 0.3 gm% (0.0-3.0); Hematocrit-ABG 38 % (42.0-52.0); Hemoglobin (Hb) 12.9 g/dL (14.0-18.0); Potassium - ABG Lab 3.74 mmol/L (3.70-5.30); pH, Arterial 7.384 (7.35-7.45)
[2023-05-18 11:53] LABS: Puncture Site LRA
[2023-05-18] MEDS: HumaLOG 300 UNITS/3 ML VIAL SC PRN (12:11)
[2023-05-18 12:36] LABS: Hemoglobin A1c 5.8 % (4.0-6.0)
[2023-05-18] MEDS: Lansoprazole 15 MG/5 ML (BATCHED)UDCUP PER TUBE SCH (21:44)
[2023-05-19] MEDS: levETIRAcetam 500 MG/5 ML VIAL SLOW IVP SCH (00:26)
[2023-05-19] MEDS: Ipratropium/Albuterol 3 ML NEB NEB SCH ×2 (01:55→07:41)
[2023-05-19] MEDS: HumaLOG 300 UNITS/3 ML VIAL SC PRN (04:48)
[2023-05-19 05:00] LABS: #Basophils 0.1 thou/uL (0.0-0.2); #Monocytes 1.5 thou/uL (0.11-0.59); #Neutrophils 27.2 thou/uL (1.40-6.50); %Basophils 0.2 % (0.0-1.0); %Lymphocytes 3.6 % (21.0-51.0); %Monocytes 4.9 % (0.0-10.0); %Neutrophils 90.4 % (42.0-75.0); Hematocrit 34.3 % (42.0-52.0); Hemoglobin 10.5 g/dL (14.0-18.0); Mean Corpuscular HGB CONC 30.6 g/dL (32.0-36.0); Mean Corpuscular Hemoglobin 29.6 pg (27.0-31.0); Mean Corpuscular Volume 96.6 fl (78.0-98.0); Mean Platelet Volume 11.2 fL (7.4-10.4); Platelet Count 258 10x3/uL (130-400); RBC Distribution Width 16.5 % (11.5-14.5); Red Blood Cell (RBC) Count 3.55 mill/uL (4.70-6.10); White Blood Cell (WBC) Count 30.1 10x3/uL (4.8-10.8)
[2023-05-19 05:16] LABS: Anion Gap 15 mmol/L (10-20); Calc. Creatinine Clearance 54 mL/min (70-130); Calcium 9.3 mg/dL (7.8-10.44); Carbon Dioxide 23 mmol/L (23-31); Chloride 116 mmol/L (98-107); Estimated GFR 28; Glucose 166 mg/dL (80-115); Potassium 3.9 mmol/L (3.5-5.1); Sodium 150 mmol/L (136-145)
[2023-05-19 05:28] LABS: BUN (Urea Nitrogen) 114 mg/dL (8.4-25.7)
[2023-05-19] MEDS: Sodium Chloride 0.45% 1,000 ML IV SCH ×2 (07:15→12:21)
[2023-05-19 08:00] LABS: Actual Bicarbonate (HCO3a) 25.6 mEq/L (22-28); Base Excess (BEa) -0.3 mEq/L (-2.0 to +3.0); CO2 Tension 47.5 mmHg (35.0-45.0); Calcium, Ionized (arterial) 1.29 mmol/L (1.12-1.30); Carboxyhemoglobin (COHb) 0.3 gm% (0.0-3.0); Hematocrit-ABG 35 % (42.0-52.0); Hemoglobin (Hb) 11.8 g/dL (14.0-18.0); O2 Tension (PaO2), arterial 81.3 mmHg (> 80.0)
[2023-05-19 08:03] LABS: Puncture Site RRA
[2023-05-19 08:04] LABS: ALV-art Gradient 215.825 mmHg (0-20)
[2023-05-19] MEDS: Lisinopril 20 MG TAB PO SCH (10:16)
[2023-05-19] MEDS: Carvedilol 25 MG TAB PO SCH (10:16)
[2023-05-19] MEDS: Amlodipine 10 MG TAB PO SCH (10:16)
[2023-05-19 10:48] VITALS: BP 116/47
[2023-05-19 10:49] VITALS: TEMP 97.6
[2023-05-22 11:14] LABS: O2 Tension (PaO2), arterial 59.1 mmHg (> 80.0)
== END 2023-05-19 15:50 | disposition expired | DRG 870 ==
LOC: ERS 02:44 → EEVIPCON 02:44 → CCU 06:08
PROVIDERS: ADMIT Student in an Organized Health Care Education/Training Program; ATTEND Family Medicine
PROC: 0T9B70Z Drainage of Bladder with Drainage Device, Via Natural or Artificial Opening (ICD-10-PCS; principal; 2023-05-12)
PROC: 5A1955Z Respiratory Ventilation, Greater than 96 Consecutive Hours (ICD-10-PCS; 2023-05-12)
PROC: 06HY33Z Insertion of Infusion Device into Lower Vein, Percutaneous Approach (ICD-10-PCS; 2023-05-12)
PROC: 4A133R1 Monitoring of Arterial Saturation, Peripheral, Percutaneous Approach (ICD-10-PCS; 2023-05-12)
PROC: 3E043XZ Introduction of Vasopressor into Central Vein, Percutaneous Approach (ICD-10-PCS; 2023-05-12)
PROC: 3E04329 Introduction of Other Anti-infective into Central Vein, Percutaneous Approach (ICD-10-PCS; 2023-05-13)
PROC: 4A00X4Z Measurement of Central Nervous Electrical Activity, External Approach (ICD-10-PCS; 2023-05-14)
DX: A41.9 Sepsis, unspecified organism (principal); G93.41 Metabolic encephalopathy; J96.01 Acute respiratory failure with hypoxia; J96.02 Acute respiratory failure with hypercapnia; I50.33 Acute on chronic diastolic (congestive) heart failure; J18.9 Pneumonia, unspecified organism; J44.1 Chronic obstructive pulmonary disease with (acute) exacerbation; I42.9 Cardiomyopathy, unspecified; Z68.41 Body mass index [BMI] 40.0-44.9, adult; E87.0 Hyperosmolality and hypernatremia; G93.1 Anoxic brain damage, not elsewhere classified; Z51.5 Encounter for palliative care; I46.8 Cardiac arrest due to other underlying condition; Z88.5 Allergy status to narcotic agent; Z88.0 Allergy status to penicillin; I11.0 Hypertensive heart disease with heart failure; D53.9 Nutritional anemia, unspecified; E66.01 Morbid (severe) obesity due to excess calories; G25.3 Myoclonus; G47.33 Obstructive sleep apnea (adult) (pediatric); Z20.822 Contact with and (suspected) exposure to COVID-19
CPT/HCPCS: 31500; 36415; 36416; 36556; 36600; 51702; 71045; 71275; 74176; 80048; 80053; 81001; 81003; 81015; 82247; 82248; 82607; 82805; 83036; 83605; 83735; 83880; 84100; 84450; 84460; 84484; 85025; 85610; 85730; 87040; 87086; 92950; 93005; 93010; 93306; 94002; 94003; 94640; 95712; 95819; 95957; 96374; 96375; 99292; C9113; J0171; J0360; J0456; J0696; J1650; J1815; J1940; J1953; J2060; J2704; J2920; J2930; J3010; J3475; J3490; J7050; J7620; Q9967